=== PATIENT | male | born 1950 | race Caucasian/White ===

== ENCOUNTER 2019-07-27 07:15 | Day surgery (SDC) | payer MEDICARE ==
[2019-07-20 15:39] LABS: BASOPHILS % (AUTO) 0.5 % (0.0-5.0); EOSINOPHILS % (AUTO) 1.4 % (0.0-8.0); HEMATOCRIT 35.7 % (42-54); LYMPHOCYTES % (AUTO) 26.9 % (21.0-51.0); MEAN CORPUSCULAR HEMOGLOBIN 28.2 pg (27.0-33.0); MEAN CORPUSCULAR HGB CONC 34.4 g/dL (32.0-36.0); MEAN CORPUSCULAR VOLUME 81.9 fL (79-99); NEUTROPHILS % (AUTO) 63.2 % (40.0-77.0); PLATELET COUNT (AUTO) 161 K/uL (130-400); RED BLOOD CELL COUNT(AUTO) 4.36 MIL/uL (4.50-6.20); RED CELL DISTRIBUTION WIDTH 14.7 % (11.0-15.5); WHITE BLOOD COUNT (AUTO) 8.4 K/uL (4.8-10.8)
[2019-07-20 15:42] VITALS: BP 103/62
[2019-07-20 15:50] LABS: CREATININE 1.1 mg/dL (0.5-1.5); POTASSIUM 4.5 mmol/L (3.5-5.1)
--- NOTE | 2019-07-20 16:25 | NUR ---
RE: BLOOD THINNERS CALLED DR LOVELL'S OFFICE AND SPOKE WITH ALEKS. CONFIRMED WITH ALEKS THAT PATIENT IS TO STOP HIS ASPIRIN, CLOPIDOGREL, AND CILOSTAZOL 5 DAYS PRIOR TO PROCEDURE (WEDNESDAY).
[~2019-07-27] VITALS: Ht 177.8 cm; Wt 85.2 kg
[2019-07-27] VITALS (14 sets, daily range): BP systolic 104–168; BP diastolic 41–85
[2019-07-27] MEDS: CEFAZOLIN SODIUM 1 GM VIAL IVP SCH ×2 (06:00→09:00)
[~2019-07-27 07:15] MED LIST: ASPI-1012 PO; CHOL100040 PO; CILO100T PO; CLOP75TA32 PO; FERR-82 PO; INSU300I SQ; LACTATED RINGERS 1000ML 1,000 ML IV SCH; LISI-613 PO; LOVA20TA3 PO; METF-446 PO; METO-391 PO; PIOG15TA66 PO
[2019-07-27] MEDS ORDERED: SODIUM CHLORIDE 0.9% 1000ML 1,000 ML IV ONE (07:43)
[2019-07-27] MEDS ORDERED: LIDOCAINE PF 2% 5ML ABBOJECT ONE (08:41)
[2019-07-27] MEDS ORDERED: DEXAMETHASONE SOD PHOSPHATE 10MG/ML 1ML VIAL ONE (08:41)
[2019-07-27] MEDS ORDERED: ONDANSETRON HCL 4 MG/2 ML VIAL ONE (08:41)
[2019-07-27] MEDS ORDERED: FENTANYL CITRATE PF 50 MCG/1 ML 2ML VIAL ONE (08:41)
[2019-07-27] MEDS ORDERED: PROPOFOL 10 MG/ML 20ML VIAL IV ONE (08:41)
[2019-07-27] MEDS ORDERED: MIDAZOLAM HCL 1 MG/ML 2ML VIAL ONE (08:41)
[2019-07-27] MEDS ORDERED: ROCURONIUM 10MG/1ML SYR 10 MG/ML ML ONE (08:42)
[2019-07-27] MEDS ORDERED: ROPIVACAINE 0.5% 5MG/ML 30ML IJ ONE (08:46)
[2019-07-27] MEDS ORDERED: GLYCOPYRROLATE 1 MG/5 ML SYRINGE ONE (09:51)
[2019-07-27] MEDS ORDERED: NEOSTIGMINE 5MG/5ML SYR IV ONE (09:51)
--- NOTE | 2019-07-27 12:40 | NUR ---
PT. LEFT VIA WHEELCHAIR IN PVT CAR WITH FAMILY FRIEND. D/C INSTRUCTIONS, FU APPT AND RX WAS GIVEN TO FAMILY FRIEND. NO COMPLICATION UPON D/C DRESSING DRY AND INTACT.
== END 2019-07-27 12:40 | disposition home or self-care (01) ==
LOC: DAH 07:15
PROVIDERS: ATTEND Orthopaedic Surgery
DX: M25.812 Other specified joint disorders, left shoulder (principal); S43.432A Superior glenoid labrum lesion of left shoulder, initial encounter; E78.00 Pure hypercholesterolemia, unspecified; E11.40 Type 2 diabetes mellitus with diabetic neuropathy, unspecified; I10 Essential (primary) hypertension; F17.210 Nicotine dependence, cigarettes, uncomplicated; I73.9 Peripheral vascular disease, unspecified; F32.9 Major depressive disorder, single episode, unspecified; X58.XXXA Exposure to other specified factors, initial encounter; Y93.89 Activity, other specified; Y92.89 Other specified places as the place of occurrence of the external cause; Y99.8 Other external cause status; Z79.82 Long term (current) use of aspirin; Z79.899 Other long term (current) drug therapy; Z79.84 Long term (current) use of oral hypoglycemic drugs; Z98.890 Other specified postprocedural states; Z79.4 Long term (current) use of insulin; Z72.89 Other problems related to lifestyle
CPT/HCPCS: 29822; 29826; 36415; 80048; 82948 ×3; 85025; A4215; A4222; A4223; A4248; A4452; A4649 ×4; A4663; A5120; A6260; J0690; J1100; J2001; J2250; J2405; J2704; J2710; J2795; J3010; J3490; J7030 ×2; J7120